=== PATIENT | female | born 1940 | race Caucasian/White ===

== ENCOUNTER 2018-07-02 20:34 | Emergency (ER) ==
[2018-07-02 20:39] VITALS: TEMP 98.6; BMI 31.7
[2018-07-02] MEDS ORDERED: LIDOCAINE HCL 1% SDV SUBCUT STA (20:47)
[2018-07-02 21:40] VITALS: BP 170/91
--- NOTE | 2018-07-02 21:44 | ED.PDOC ---
General ED Provider: Dr. HIREN ALFREDO Chief Complaint: Face Laceration Stated Complaint: Patient states that while carring a barbarcue bowl she tripped falling and hitting it on her upper lip. Did not loose conciousness. sustained a 2 cm upper lip laceration. Time Seen by Physician: 20:40 Mode of Arrival: Walk-In Information Source: Patient Exam Limitations: No limitations Primary Care Provider: MARILEE CROWDER Nursing and Triage Documentation Reviewed and Agree: Yes Does patient meet sepsis criteria?: No System Inflammatory Response Syndrome: Not Applicable Sepsis Protocol: For patient's 13 years and over: Temp is 96.8 and below OR 101 and greater Pulse >90 BPM Resp >20/minute Acutely Altered Mental Status Are patient's symptoms suggestive of a new infection, such as: -Pneumonia -Skin, Soft Tissue -Endocarditis -UTI -Bone, Joint Infection -Implantable Device -Acute Abdominal Infection -Wound Infection -Meningitis -Blood Stream Catheter Infection -Unknown Review of Systems - Review Of Systems Constitutional: Reports: No symptoms Eyes: Reports: No symptoms Ears, Nose, Mouth, Throat: Reports: No symptoms Respiratory: Reports: No symptoms Cardiac: Reports: No symptoms GI: Reports: No symptoms : Reports: No symptoms Musculoskeletal: Reports: No symptoms Skin: Reports: Other (upper lip laceration ) Neurological: Reports: Anxiety Endocrine: Reports: No symptoms Hematologic/Lymphatic: Reports: No symptoms All Other Systems: Reviewed and Negative Past Medical History - Past Medical History Previously Healthy: Yes Endocrine: Reports: None, Dyslipidemia Cardiovascular: Reports: Hypertension Respiratory: Reports: None Hematological: Reports: None Gastrointestinal: Reports: None Genitourinary: Reports: None Neuro/Psych: Reports: None Musculoskeletal: Reports: Joint Pain, Other (osteoporosis) Cancer: Reports: Other Last Menstrual Period: none - Surgical History General Surgical History: Reports: Orthopedic (Knee repalcement ) - Family History Family History: Reports: Unknown - Social History Smoking Status: Never smoker Hx Substance Use: No Alcohol Screening: None - Immunizations Tetanus Shot up to Date: Yes Physical Exam - Physical Exam Appearance: Well-appearing, Well-nourished Pain Distress: Moderate Eyes: CORINNA, EOMI, Conjunctiva clear ENT: Nose normal, Oropharynx normal Neck: Supple Respiratory: Respirations nonlabored Skin: Warm, Dry, Normal color Neurological: Alert, Oriented Psychiatric: Anxious Procedures - Laceration/Wound Repair upper lip laceration Wound Description: Irregular, Flap Wound Length (cm): 2.5 Wound Width: 1 Wound Depth: 0.5 Wound Explored: Clean Wound Irrigated: No Wound Prep: Isrraeliclens Anesthesia: Lidocaine Wound Margins: Vermilion border aligned Wound Repaired With: Sutures Suture Size and Type: 5.0 Number of Sutures: 10 (simple interuped ) Layer Closure?: No Sterile Dressing Applied?: No Splint Applied?: No Sling Applied?: No Progress: Tolerate procedure well Re-Evaluation - Re-Evaluation Time of Re-Evaluation: 21:40 Status: Improved Vital Signs Stable: Yes (170/91) Appearance: NAD Critical Care Note - Critical Care Note Total Time (mins): 0 Course - Course Orders, Labs, Meds: Orders Category Date Time Status Wound care [ED WOUND CARE] .ONCE EMERGENCY 07/02/18 20:47 Active Lidocaine HCl/Pf [Lidocaine HCl 1% Sdv] MEDS 07/02/18 20:47 Discontinued 5 ml SUBCUT ONCE STA Medications Discontinued Medications Generic Name Dose Route Start Last Admin Trade Name Marquis PRN Reason Stop Dose Admin Lidocaine HCl 5 ml 07/02/18 20:47 07/02/18 21:05 Lidocaine Hcl 1% Sdv SUBCUT 07/02/18 20:48 1.5 ml ONCE STA Administration Vital Signs: Temp Pulse Resp BP Pulse Ox 07/02/18 21:40 170/91 H 07/02/18 20:35 98.6 F 79 20 191/128 H 97 Departure - Departure Time of Disposition: 21:43 Disposition: HOME SELF-CARE Discharge Problem: Facial laceration Instructions: Laceration (ED) Condition: Stable Pt referred to PMD for follow-up: Yes IPMP verified?: No Additional Instructions: Follow up with PCP or ER in 7-10 days to have sutures removed. Allergies/Adverse Reactions: Allergies ibuprofen [From Motrin] Adverse Reaction (Verified 07/02/18 20:39) Home Medications: Ambulatory Orders Aspirin [Aspirin Chewable] 81 mg PO DAILYWM 11/10/14 Butalb/Acetaminophen/Caffeine [Rsffgm-Djxzjzlc-Zdwf 50-300-40] 1 each PO DAILY 11/10/14 Pantoprazole Sodium [Protonix] 40 mg PO DAILY 11/10/14 Atorvastatin Calcium 10 mg PO DAILY 07/02/18 Mirabegron [Myrbetriq] 50 mg PO DAILY 07/02/18 Valsartan/Hydrochlorothiazide [Valsartan-Hctz 160-25 mg Tab] 1 tab PO DAILY 05/21 Disposition Discussed With: Patient, Family
== END 2018-07-02 21:47 | disposition home or self-care (01) ==
LOC: ED 20:34
DX: S01.511A Laceration without foreign body of lip, initial encounter (principal); W01.198A Fall on same level from slipping, tripping and stumbling with subsequent striking against other object, initial encounter; I10 Essential (primary) hypertension
CPT/HCPCS: 99283